=== PATIENT | male | born 1945 | race Caucasian/White ===

== ENCOUNTER 2023-05-07 06:00 | Day surgery (SDC) | payer OTHER ==
[~2023-05-07] VITALS: Ht 172.7 cm; Wt 63.5 kg
[~2023-05-07 06:00] MED LIST: CLONAZEPAM1 MG PO; FINASTERIDE5 MG PO; PREVACID30 MG PO; REMERON15 M1 PO; RESTORIL PO; TAMS0.4C PO; WELLBUTRIN SR200 MG PO
== END 2023-05-07 13:15 | disposition home or self-care (01) ==
LOC: CIR.AMB 06:00
PROVIDERS: ATTEND Surgery
DX: K40.20 Bilateral inguinal hernia, without obstruction or gangrene, not specified as recurrent (principal); K42.0 Umbilical hernia with obstruction, without gangrene; Z88.6 Allergy status to analgesic agent; Z91.041 Radiographic dye allergy status
CPT/HCPCS: 49650; 49594; C1781; S2900